=== PATIENT | male | born 1995 | race Caucasian/White ===

== ENCOUNTER → 2024-08-12 | Outpatient (CLI) | payer BC | LOC: LAB 18:42 | DX: Z20.2 Contact with and (suspected) exposure to infections with a predominantly sexual mode of transmission (principal) ==

== ENCOUNTER → 2024-08-15 | Outpatient (CLI) | payer BC | LOC: LAB 13:11 | DX: Z20.2 Contact with and (suspected) exposure to infections with a predominantly sexual mode of transmission (principal) ==